=== PATIENT | female | born 1980 | race African-American/Black ===

== ENCOUNTER → 2018-05-02 | Outpatient (CLI) | payer OTHER ==
[~2018-05-02] MED LIST: FLEXERIL 1010 MG/TAB PO; LEXAPRO 10MG10 MG PO; NORCO 325 MG-51 TAB PO; PRINZIDE 25 MG-1 TAB PO; PROVENTIL0.09 MG/A1 IH; PROZAC 20MG20 MG PO; RT ADVAIR 228 DISKUS IH; TOPAMAX50 MG PO; ZESTORETIC 25 M1 TAB PO
[2018-05-02 11:14] LABS: COLLECTION METHOD CLEAN CATCH
[2018-05-02 11:18] LABS: BASO % 0.4 % (0.0-2.0); EOS # 0.1 (0.0-0.7); EOS % 0.9 % (0-4.0); GRAN # 2.6 (1.4-6.5); GRAN % 45.8 % (42.2-75.2); LYMPH # 2.5 (1.2-3.4); LYMPH % 44.9 % (20.0-51.0); MEAN CELL VOLUME 85 fl (80.0-100.0); MEAN CORPUSCULAR HEMOGLOBIN 27 pg (27.0-31.0); MEAN CORPUSCULAR HGB CONC 32 g/dl (33.0-37.0); MEAN PLATELET VOLUME 9.2 fl (7.4-10.4); MONO # 0.4 (0.1-0.6); MONO % 7.8 % (1.7-9.3); PLATELET COUNT 440 K/mm3 (130-400); RED BLOOD COUNT 4.83 M/mm3 (4.10-5.30); REDCELL DISTRIBUTION WIDTH-CV 14.5 % (11.5-14.5)
[2018-05-02 11:28] LABS: ALBUMIN 4.2 gm/dL (3.5-5.0); BILIRUBIN,TOTAL 0.4 mg/dL (0.0-1.0); CALCIUM 9.4 mg/dL (8.4-10.2); CREATININE, serum 0.74 mg/dL (0.52-1.25); TOTAL PROTEIN 7.9 gm/dL (6.4-8.2)
[2018-05-02 11:41] LABS: MUCOUS Present /lpf; PH 5 (5-8); URINE APPEARANCE Hazy; URINE BACTERIA None Seen /hpf; URINE BILIRUBIN Negative (NEGATIVE); URINE BLOOD 3+ (NEGATIVE); URINE COLOR Yellow; URINE GLUCOSE Negative (NEGATIVE); URINE KETONE Negative (NEGATIVE); URINE LEUKOCYTE ESTERASE Trace (NEGATIVE); URINE NITRATE Negative (NEGATIVE); URINE PROTEIN(semi-quant) Negative (NEGATIVE); URINE UROBILINOGEN Negative (NEGATIVE)
== END ==
LOC: COL.LAB 10:36
PROVIDERS: Family Medicine
DX: R10.9 Unspecified abdominal pain (principal); R11.10 Vomiting, unspecified

== ENCOUNTER → 2018-05-09 | Outpatient (CLI) | payer OTHER ==
[2018-05-09 17:47] LABS: POTASSIUM 4.5 mmol/L (3.4-5.0)
[2018-05-09 17:48] LABS: ALBUMIN 4.3 gm/dL (3.5-5.0); BILIRUBIN,TOTAL 0.4 mg/dL (0.0-1.0); CALCIUM 9.5 mg/dL (8.4-10.2); CHOLESTEROL RISK RATIO 4.7; CREATININE, serum 0.84 mg/dL (0.52-1.25); TOTAL PROTEIN 8.3 gm/dL (6.4-8.2)
== END ==
LOC: ZCOL.LAB 16:03 → ZLAB.STJ 16:03 → COL.LAB 16:03
PROVIDERS: Family Medicine
DX: I10 Essential (primary) hypertension (principal); R94.5 Abnormal results of liver function studies

== ENCOUNTER → 2018-07-03 | Outpatient (CLI) | payer OTHER | LOC: BHSO 10:57 | DX: F31.81 Bipolar II disorder (principal) ==

== ENCOUNTER → 2018-07-16 | Outpatient (CLI) | payer OTHER | LOC: BHSO 09:55 | DX: F31.81 Bipolar II disorder (principal) ==

== ENCOUNTER → 2018-07-23 | Outpatient (CLI) | payer OTHER ==
[2018-07-23 08:47] LABS: HEMATOCRIT 40.5 % (37.0-47.0); HEMOGLOBIN 12.9 g/dl (12.5-16.0); MEAN CELL VOLUME 84 fl (80.0-100.0); MEAN CORPUSCULAR HEMOGLOBIN 27 pg (27.0-31.0); MEAN CORPUSCULAR HGB CONC 32 g/dl (33.0-37.0); MEAN PLATELET VOLUME 9.3 fl (7.4-10.4); PLATELET COUNT 359 K/mm3 (130-400); REDCELL DISTRIBUTION WIDTH-CV 14.6 % (11.5-14.5)
[2018-07-23 08:56] LABS: ALBUMIN 4.1 gm/dL (3.5-5.0); BILIRUBIN,TOTAL 0.3 mg/dL (0.0-1.0); CALCIUM 9.3 mg/dL (8.4-10.2); CREATININE, serum 0.74 (0.52-1.25); TOTAL PROTEIN 7.7 gm/dL (6.4-8.2)
== END ==
LOC: COL.LAB 08:15
PROVIDERS: Family Medicine
DX: R10.10 Upper abdominal pain, unspecified (principal)

== ENCOUNTER → 2018-07-27 | Outpatient (CLI) | payer OTHER | LOC: BHSO 10:43 | DX: F90.0 Attention-deficit hyperactivity disorder, predominantly inattentive type (principal) | CPT/HCPCS: G0463 ==

== ENCOUNTER → 2018-10-24 | Outpatient (CLI) | payer OTHER | LOC: BHSO 09:01 | DX: F41.1 Generalized anxiety disorder (principal) ==

== ENCOUNTER → 2018-11-30 | Outpatient (CLI) | payer OTHER | LOC: BHSO 08:58 | DX: F90.0 Attention-deficit hyperactivity disorder, predominantly inattentive type (principal) | CPT/HCPCS: G0463 ==

== ENCOUNTER → 2018-12-17 | Outpatient (CLI) | payer OTHER ==
[2018-12-17 18:29] LABS: ALBUMIN 4.6 gm/dL (3.5-5.0); CALCIUM 9.5 mg/dL (8.4-10.2); CREATININE, serum 0.64 (0.52-1.25); POTASSIUM 3.6 mmol/L (3.4-5.0)
[2018-12-17 18:45] LABS: BASO % 0.5 % (0.0-2.0); BILIRUBIN UNCONJUGATED 0.3 mg/dL (0.0-1.1); EOS # 0.1 (0.0-0.7); GRAN # 2.3 (1.4-6.5); HEMATOCRIT 45.5 % (37.0-47.0); LYMPH # 3.1 (1.2-3.4); LYMPH % 51.7 % (20.0-51.0); MEAN CELL VOLUME 88 fl (80.0-100.0); MEAN CORPUSCULAR HEMOGLOBIN 27 pg (27.0-31.0); MEAN CORPUSCULAR HGB CONC 31 g/dl (33.0-37.0); MEAN PLATELET VOLUME 9.9 fl (7.4-10.4); MONO # 0.5 (0.1-0.6); MONO % 8.6 % (1.7-9.3); PLATELET COUNT 444 K/mm3 (130-400); RED BLOOD COUNT 5.18 M/mm3 (4.10-5.30); REDCELL DISTRIBUTION WIDTH-CV 14.8 % (11.5-14.5)
[2018-12-17 18:49] LABS: BILIRUBIN,TOTAL 0.3 mg/dL (0.0-1.0)
[2018-12-17 18:59] LABS: THYROID STIMULATING HORMONE 2.19 uIU/mL (0.465-4.680)
== END ==
LOC: ZCOL.LAB 17:47
PROVIDERS: Family Medicine
DX: R68.89 Other general symptoms and signs (principal); R94.5 Abnormal results of liver function studies; Z79.899 Other long term (current) drug therapy

== ENCOUNTER → 2018-12-28 | Outpatient (CLI) | payer OTHER | LOC: BHSO 08:36 | DX: F90.0 Attention-deficit hyperactivity disorder, predominantly inattentive type (principal) | CPT/HCPCS: G0463 ==

== ENCOUNTER → 2019-03-22 | Outpatient (CLI) | payer OTHER | LOC: BHSO 09:18 | DX: F90.0 Attention-deficit hyperactivity disorder, predominantly inattentive type (principal) | CPT/HCPCS: G0463 ==

== ENCOUNTER → 2019-08-15 | Outpatient (CLI) | payer OTHER | LOC: BHSO 09:38 | DX: F90.0 Attention-deficit hyperactivity disorder, predominantly inattentive type (principal) | CPT/HCPCS: G0463 ==

== ENCOUNTER → 2019-10-23 | Outpatient (CLI) | payer OTHER | LOC: MC.RAD 13:59 | DX: R92.8 Other abnormal and inconclusive findings on diagnostic imaging of breast (principal) ==

== ENCOUNTER → 2019-11-25 | Outpatient (CLI) | payer OTHER | LOC: BHSO 11:41 | DX: F90.0 Attention-deficit hyperactivity disorder, predominantly inattentive type (principal) | CPT/HCPCS: G0463 ==